=== PATIENT | female | born 1955 | race Caucasian/White ===

== ENCOUNTER 2021-09-29 21:05 | Emergency (ER) | payer MEDICARE, OTHER ==
[2021-09-29] MEDS ORDERED: VIBRAMYCIN100 MG PO (23:59)
[2021-09-30] MEDS ORDERED: NORVASC5 MG PO (00:28)
== END 2021-09-30 00:36 | disposition home or self-care (01) ==
LOC: FER 21:05
DX: S30.861A Insect bite (nonvenomous) of abdominal wall, initial encounter (principal); I10 Essential (primary) hypertension; W57.XXXA Bitten or stung by nonvenomous insect and other nonvenomous arthropods, initial encounter
CPT/HCPCS: 99281